=== PATIENT | female | born 1970 | race Caucasian/White ===

== ENCOUNTER 2018-08-01 23:50 | Inpatient (IN) | payer OTHER ==
[~2018-08-01] VITALS: Ht 165.1 cm; Wt 89.4 kg
[~2018-08-01 23:50] MED LIST: ALBU3IS; ALBU3IS INH; ALBU90OI INH; AMLO5 PO; Albuterol2.5 MG/0.5 INH; BLOOD PRESSURE; Cefpodoxime Pr100 MG PO; DULERA 100 MCG/13 GM INH; Flonase 0.05% N16 GM; GUAI600T33 PO; METPRE4DP PO; MONT10T PO; PRED20 PO; QVAR REDIHALE10.6 G1 IH; QVAR REDIHALE10.6 G1 INH
[2018-08-02 00:18] LABS: PCO2 Arterial 45.9 mmHg (35-45); PO2 Arterial 71.1 mmHg (80-100); pH Blood Arterial 7.33 (7.35-7.45)
[2018-08-02] MEDS ORDERED: BREO (00:34)
[2018-08-02 00:36] LABS: BASOPHILS ABSOLUTE AUTO 0.14 K/mm3 (0.00-0.23); BASOPHILS PERCENT AUTO 1 % (0-2); EOSINOPHILS ABSOLUTE AUTO 0.91 K/mm3 (0.00-0.68); EOSINOPHILS PERCENT AUTO 9 % (0-6); Hemoglobin 16.1 g/dL (11.5-16.0); IMMATURE GRAN ABSOLUTE AUTO 0.04 K/mm3 (0.00-0.10); IMMATURE GRAN PERCENT AUTO 0 % (0-1); LYMPHOCYTES ABSOLUTE AUTO 1.77 K/mm3 (0.84-5.20); LYMPHOCYTES PERCENT AUTO 17 % (21-46); MONOCYTES PERCENT AUTO 7 % (4-13); Mean Corpuscular HGB 32.9 pg (26.0-34.0); Mean Corpuscular HGB Conc 34.3 g/dL (31.5-36.5); Mean Corpuscular Volume 96 fL (80-100); Mean Platelet Volume 10.2 fL (9.1-12.4); NEUTROPHILS ABSOLUTE AUTO 6.93 K/mm3 (1.96-9.15); NEUTROPHILS PERCENT AUTO 66 % (41-73); Platelet Count 331 K/mm3 (150-400); RDW Coefficient Variation 12.4 % (11.7-14.2); White Blood Cell Count 10.49 K/mm3 (4.00-11.30)
--- NOTE | 2018-08-02 02:30 | NUR ---
ASSESSMENT: PT TRANSFERRED TO ICU 9 VIA GURNEY WITH HEART MONITOR ATTACHED AND RN AT BEDSIDE. PT DOING PURSED LIP BREATHING. LS VERY TIGHT T/O WITH EXP. WHEEZES T/O WITH BIOX 93% ON 3L N/C. RR 38. HEART SOUNDS S1 AND S2 AUSCULTATED WITH MONITOR SHOWING ST WITH HR 113. PT STATES HX OF WAP. 20G IV LH S/L. ABD R/S WITH BTX4. STATES HAVING 2/10 RIB PAIN FROM COUGHING SO MUCH. S.O. AT BEDSIDE.
--- NOTE | 2018-08-02 03:00 | NUR ---
AMBULATION: ASSISTED PT TO COMMODE TO VOID. BIOX DROPPED TO 87% WITH MOVEMENT, BUT CAME BACK UP TO 93% AFTER ABOUT 1 MINUTE OF PURSED LIP BREATHING.
[2018-08-02 03:06] LABS: Alanine Aminotransfer (ALT/SGP 61 U/L (12-78); Albumin, Blood 4.2 g/dL (3.4-5.0); Albumin/Globulin Ratio 1.1 (0.8-1.8); Alk Phos 78 U/L (50-136); Anion Gap 9 mmol/L (6-16); Aspartate Aminotrans (AST/SGOT 29 U/L (12-37); Bilirubin, Total 0.4 mg/dL (0.1-1.0); Blood Urea Nitrogen 13 mg/dL (8-24); Bun/Creatinine Ratio 19.2 (12.0-20.0); CO2, Blood 24 mmol/L (21-32); Chloride, Blood 108 mmol/L (98-108); Creatinine, Blood 0.68 mg/dL (0.40-1.00); Globulin, Blood 3.7 g/dL (2.2-4.0); Glomerular Filtration Rate >60 (60-); Glucose, Blood 132 mg/dL (70-99); Sodium, Blood 141 mmol/L (136-145); Total Protein, Blood 7.9 g/dL (6.4-8.2); Troponin I 0.129 ng/mL (0.000-0.040)
[2018-08-02] MEDS ORDERED: BREO ELLIPTA 21 EACH INH (03:57)
[2018-08-02] MEDS ORDERED: CYCL10 PO (04:12)
[2018-08-02] MEDS ORDERED: Allegra-D 24 H1 EACH PO (04:12)
[2018-08-02] MEDS ORDERED: ADVIL100 MG PO (04:13)
--- NOTE | 2018-08-02 06:23 | NUR ---
SHIFT SUMMARY: PT RESTING WELL, EASILY AROUSED. STATES THAT SHE IS FEELING BETTER. LS LESS TIGHT W/O WHEEZES. BIOX 96% ON 3L N/C.
--- NOTE | 2018-08-02 07:29 | NUR ---
START OF SHIFT NOTE: RECEIVED REPORT FROM SILKE CAPONE RN, ASSUMED CARE, PATIENT IS AWAKE AND ALERT AND ORIENTED, LUNG SOUNDS ARE TIGHT AND HAVE EXPIRATORY WHEEZES, PATIENT ON A BREATHING TREATMENT, HAS COUGHING SPELLS, BUT BRINGS UP ONLY SCANT AMOUNT OF YELLOWISH SPUTUM, SR/ST, BOWEL TONES HYPOACTIVE, PEDAL PULSES STRONG AND PALPABLE BILATERALLY, PATIENT ASSISTED UP TO BSC, CALL LIGHT IN REACH, WILL CONTINUE TO MONITOR.
--- NOTE | 2018-08-02 07:46 | NUR ---
PATIENT UP TO BSC WITH SBA, VOIDED AND HAD BM, RETURNED TO BED, PATIENT HAD COUGHING SPELL AGAIN, BUT O2 SATS HOLDING AT 93 %, POSITIONED FOR COMFORT, CALL LIGHT IN REACH, WILL CONTINUE TO MONITOR.
--- NOTE | 2018-08-02 10:42 | NUR ---
PATIENT CONTINUES TO HAVE COUGHING SPELLS WHEN UP TO BSC, MAINTAINS O2 SATS IN MID 90'S, OVERALL FEELS BETTER THOUGH, CALL LIGHT IN REACH, WILL CONTINUE TO MONITOR.
--- NOTE | 2018-08-02 11:57 | NUR ---
DR. TORRES IN TO SEE PATIENT, NEW ORDERS RECEIVED.
--- NOTE | 2018-08-02 13:05 | NUR ---
DR. DE LA ROSA NOTIFIED THAT HE IS CONSULTED FOR PULMONARY WITH THIS PATIENT, REFERRAL BY DR. TORRES.
--- NOTE | 2018-08-02 13:58 | NUR ---
ECHO DONE ORDERED BY CLINIC CLERK.
--- NOTE | 2018-08-02 14:04 | NUR ---
Echocardiogram completed.
--- NOTE | 2018-08-02 15:14 | NUR ---
HEAD AND NECK U/S DONE, DR. DE LA ROSA IN TO SEE PATIENT.
--- NOTE | 2018-08-02 17:18 | NUR ---
SHIFT SUMMARY NOTE: PATIENT IS DOING MUCH BETTER, BREATHING IMPROVED, UP TO BSC WITH SBA AND HAS NO MORE PROLONGED COUGHING SPELLS WHILE UP, LESS TIGHT AND LESS EXPIRATORY WHEEZING THROUGHOUT ALL LUNG SCHWARTZ, PATIENT ABLE TO BE UP WITH MINIMAL ASSISTANCE, STATED "I FEEL SO MUCH BETTER", SINUS TACHY WITH HR IN 90'S TO LOW 100'S WITH ACTIVITY, BOWEL TONES ARE PRESENT AND PATIENT HAD 2 SMALL BM'S DURING THIS SHIFT, ALSO URINATED GOOD AMOUNTS OF CLEAR YELLOW URINE, SCD'S IN PLACE, PATIENT IS ALSO ON CHEMICAL PROPHYLAXIS, LOVENOX, ON A CARDIAC/HEART HEALTHY DIET, EATING WITH GOOD APPETITE, DR. TORRES IN TO SEE PATIENT AND SHE PLACED CONSULT FOR PULMONARY TO SEE PATIENT, DR. DE LA ROSA IN AND NEW TESTS ORDERED, ECHO WAS DONE, EF 65-70 %, ALSO HEAD/NECK ULTRA SOUND WAS DONE, DR. DE LA ROSA ALSO ORDERED [facility] BLOOD TEST D/T ELEVATED EOSINOPHILS, PATIENT IS RESTING COMFORTABLY, USES CALL LIGHT APPROPRIATELY, REFUSED BED BATH D/T VISITORS AT BEDSIDE, FOR DETAILS SEE SHIFT ASSESSMENT DOCUMENTATION AND NURSES NOTES, CALL LIGHT IN REACH, WILL CONTINUE TO MONITOR AND GIVE REPORT TO ONCOMING ART FRAMING MANAGER.
--- NOTE | 2018-08-02 20:31 | NUR ---
ASSUMED CARE AT 1915. REPORT RECEIVED PARTIALLY AT BEDSIDE. PT PRESENTS IN BED. ALERT AND ORIENTED PLEASANT AND COOPERATIVE WITH CARE AND ASSESSMENT. PT ABLE TO MOVE ABOUT BED ON HER OWN. OXYGEN ON AT 2 L/M. PT DOES HAVE DRY HACKY TYPE COUGH WITH EXERTION. TEACHING ON DISEASE PROCESS DONE WITH PT. WILL REVIEW CHART AND PLAN OF CARE FOR THIS PT.
--- NOTE | 2018-08-03 00:13 | NUR ---
PT HAS BEEN UP TO BEDSIDE COMMODE SEVERAL TIMES THIS EVENING. DOES HAVE EXERTIONAL DYSPNEA WHICH SHE STATES IS MUCH BETTER THAN EARLIER IN DAY. PT HAS EVEN REQUESTED TO TAKE A BREAK FROM HER NASAL CANNULA. TEACHING DONE ON ITS NECESSITY, WHICH PT VOICED UNDERSTANDING. PT CURRENTLY ON 2 LITERS PER NASAL CANNULA. HAS COMPLAINED OF HER NARES BEING DRIED SECONDARY TO O2. DID PROVIDE PT WITH WATER SOLUABLE LUBRICANT FOR NARES WHICH SHE STATES HAS HELP A LOT. WILL CONTINUE TO MONITOR PT.
--- NOTE | 2018-08-03 03:05 | NUR ---
PT CONTINUES ON 2 L/M O2. OCCASSIONALLY HAS DRY HACKY COUGH. VOICES NO COMPLAINTS. IS ABLE TO MOVE ABOUT IN BED INDEPENDENTLY. WILL CONTINUE TO MONITOR PT.
[2018-08-03 03:40] LABS: Anion Gap 9 mmol/L (6-16); Blood Urea Nitrogen 15 mg/dL (8-24); Bun/Creatinine Ratio 21.8 (12.0-20.0); CO2, Blood 25 mmol/L (21-32); Calcium, Blood 9.2 mg/dL (8.5-10.1); Chloride, Blood 108 mmol/L (98-108); Creatinine, Blood 0.69 mg/dL (0.40-1.00); Glomerular Filtration Rate >60 (60-); Glucose, Blood 154 mg/dL (70-99); Phosphorus, Blood 3.7 mg/dL (2.5-4.9); Potassium, Blood 4.2 mmol/L (3.5-5.5); Sodium, Blood 142 mmol/L (136-145)
--- NOTE | 2018-08-03 06:58 | NUR ---
PT STATES THAT SHE HAS HAD A MUCH BETTER NIGHT. HAS NOT HAD AGGRESSIVE COUGH SHE DID BEFORE. CONTINUES ON 2 L/M OXYGEN PER NASAL CANNULA. MAINTAINS OXYGEN SATURATIONS > 90 PERCENT. DENIES COMPLAINTS OF PAIN. IS ABLE TO GET UP TO COMMODE WITH MINIMAL ASSIST. VOIDS Q.S. WILL CONTINUE TO MONITOR PT, AND WILL REPORT OFF TO GENEVIEVE YOST.
--- NOTE | 2018-08-03 10:40 | NUR ---
PT A/O. O2 2L WITH GOOD SATS BUT LUNGS QUITE TIGHT AND DIM. WITH WHEEZING SCATTERED T.O. UP TO VOID. PO INTAKE GOOD. PT QUITE AWARE OF LIMITATIONS. VS NOTED.
--- NOTE | 2018-08-03 17:25 | NUR ---
PT HAS BEEN SOMEWHAT INDEPENDENT IN ROOM EXCEPT FOR LINES. HAS CONT TO HAVE OCC COUGHING EPISODES AND PRODUCING SMALL AMOUNTS SPUTUM YELLOW IN COLOR. PT UP TO COMMODE TO VOID. HAS BEEN VISITING WITH FRIEND CAITLIN WHO HAS BEEN IN AND OUT TO VISIT. PT HAS A NEW ROOM ASSIGNED AND WILL SENT TO 337 AFTER GIVING REPORT AND WILL ARRANGE KATHY.
--- NOTE | 2018-08-03 17:50 | NUR ---
TRANSFER REPORT CALLED TO ZOE Romano RN AND WILL TRANSFER TO [facility] VIA W/C PER [facility] PCT.
--- NOTE | 2018-08-03 18:00 | NUR ---
PT. ARRIVED TO ROOM FROM ICU VIA WC. A&O DENIES PAIN BUT HAVEING SOB WITH PURSED LIP BREATHING. SETTLED PT. IN BED AND GOT O2 TUBING AND PUT ON PT. AT 1 1/2 L/NC. PT. PLEASANT AND COOPERATIVE LS TIGHT AND DIMINISHED T/O.
--- NOTE | 2018-08-04 05:04 | NUR ---
Shift Summary Pt has not slept too well during the night. Has been up in room per self to the bathroom. Continues with oxygen at 1.5l/nc. Has had dry harsh sounding cough at times during the night. No acute events noted during the night, will continue to monitor.
[2018-08-04 05:49] LABS: Albumin, Blood 3.8 g/dL (3.4-5.0); Anion Gap 6 mmol/L (6-16); Blood Urea Nitrogen 20 mg/dL (8-24); Bun/Creatinine Ratio 26.7 (12.0-20.0); CO2, Blood 27 mmol/L (21-32); Calcium, Blood 9.2 mg/dL (8.5-10.1); Chloride, Blood 109 mmol/L (98-108); Creatinine, Blood 0.75 mg/dL (0.40-1.00); Glomerular Filtration Rate >60 (60-); Glucose, Blood 151 mg/dL (70-99); Phosphorus, Blood 3.2 mg/dL (2.5-4.9); Potassium, Blood 4.4 mmol/L (3.5-5.5); Sodium, Blood 142 mmol/L (136-145)
--- NOTE | 2018-08-04 16:17 | NUR ---
PT IS ALERT AND ORIENTED AND COOPERATIVE WITH CARE. HER SPOUSE IS AT THE BEDSIDE NOW. THE PATIENT BECOMES SOB WITH EXERTION. SHE HAS OXYGEN AT THE BEDSIDE AT 2L TO USE PRN. THE PT IS ON ROOM AIR AT REST. SHE USES THE BATHROOM AND AMBULATES ON HER OWN TO GET THERE. SHE HAS BEE SEEING RT FOR BREATHING TREATMENTS. NO COMPLAINTS OF PAIN. SHE IS ON A REGULAR DIET WITH A GOOD APPETITE. VITAL SIGNS ARE STABLE. WILL CONTINUE TO MONITOR. PT CALLS APPROPRIATELY.
--- NOTE | 2018-08-05 04:33 | NUR ---
SHIFT SUMMARY A/O, ABLE TO MAKE NEEDS KNOWN. COOPERATIVE WITH CARE. CALLS AND ANSWERS QUESTIONS APPROPRIATELY. NO C/O PAIN/DISCOMFORT. APPEARED TO REST MUCH OF SHIFT. NO ACUTE CHANGES OVERNIGHT. VSS/AFEBRILE. WCTM. BED IN LOWEST POSITION. CALL LIGHT AND BELONGINGS WITHIN REACH. REPORT TO ONCOMING RN.
[2018-08-05] MEDS ORDERED: Albuterol2.5 MG/0.5 INH (14:31)
[2018-08-05] MEDS ORDERED: Prednisone20 MG PO (14:37)
[2018-08-05] MEDS ORDERED: PANT40 PO (14:38)
[2018-08-05] MEDS ORDERED: INCRUSE ELLI62.5 MCG INH (14:38)
--- NOTE | 2018-08-05 16:40 | NUR ---
PATIENT D/C'D HOME W/SPOUSE AT THIS TIME. PATIENT STATES UNDERSTANDING OF MEDS, F/U APPTS, OP TESTS, ETC. NO C/O AT THIS TIME.
== END 2018-08-05 16:40 | disposition home or self-care (01) | DRG 189 ==
LOC: ER 23:50 → ICUW 08-02 02:05 → MEDS 08-03 18:18 → ENPENDDIS 08-05 15:02 → MEDS 08-05 16:40
PROVIDERS: Emergency Medicine; Internal Medicine; Internal Medicine Critical Care Medicine; ADMIT Hospitalist
DX: J96.01 Acute respiratory failure with hypoxia (principal); I21.A1 Myocardial infarction type 2; J45.41 Moderate persistent asthma with (acute) exacerbation; D72.1 Eosinophilia; K21.9 Gastro-esophageal reflux disease without esophagitis; E04.1 Nontoxic single thyroid nodule; R91.8 Other nonspecific abnormal finding of lung field; I10 Essential (primary) hypertension; E66.9 Obesity, unspecified; R13.10 Dysphagia, unspecified; Z87.891 Personal history of nicotine dependence; Z68.33 Body mass index [BMI] 33.0-33.9, adult
CPT/HCPCS: 36415; 36600; 71045; 76536; 80053; 80069; 82803; 84484; 85025; 93005; 93010; 93306; 94640; 94644; 94760; 96365; 96375; 99285-25; J1650; J2060; J2930; J3475

== ENCOUNTER 2018-10-31 13:23 | Day surgery (SDC) | payer OTHER ==
[~2018-10-31] VITALS: Ht 165.1 cm; Wt 93.8 kg
[~2018-10-31 13:23] MED LIST changes: +ADVIL100 MG PO; +Allegra-D 24 H1 EACH PO; +BREO; +BREO ELLIPTA 11 EACH INH; +BREO ELLIPTA 21 EACH INH; +CYCL10 PO; +IBUP800 PO; +INCRUSE ELLI62.5 MCG INH; +PANT40 PO; +Prednisone20 MG PO
--- NOTE | 2018-10-31 14:42 | NUR ---
History, Chart, Medications and Allergies reviewed before start of procedure. Patient confirms NPO status and agrees with scheduled surgery. Patient States Post-Procedure ride home has been arranged. Lungs clear T/O to Auscultation. Pre-Op teaching done. Pt verbalizes understanding.
--- NOTE | 2018-10-31 16:43 | NUR ---
10/31/18 1643 Marc Benites 3-LEAD EKG REVIEWED WITH PHYSICIAN PRIOR TO START OF PROCEDURE.PATIENT CONFIRMS NPO STATUS AND AGREES WITH SCHEDULED PROCEDURE.History, Chart, Medications and Allergies reviewed before start of procedure. History, Chart, Medications and Allergies reviewed before start of procedure.MONITOR INTACT WITH CONTINUOUS PULSE OXIMETRY AND INTERMITTENT BP.O2 VIA N/C INTACT THROUGHOUT SEDATION/PROCEDURE. Bite Block Placed
--- NOTE | 2018-10-31 17:47 | NUR ---
Patient up to Ambulate independently. Gait steady. Discharge instructions reviewed with patient. Patient verbalizes understanding. Copy given to patient to take home. Patient States Post-Procedure ride home has been arranged. Discharged via wheelchair to private car for ride home.
== END 2018-10-31 22:55 | disposition home or self-care (01) ==
LOC: ORSCMMR 13:23 → ORD 15:30 → ORSCMMR 15:30
PROVIDERS: Student in an Organized Health Care Education/Training Program
PROC: 0DB58ZX Excision of Esophagus, Via Natural or Artificial Opening Endoscopic, Diagnostic (ICD-10-PCS; principal; 2018-10-31 15:30)
PROC: 0DB68ZX Excision of Stomach, Via Natural or Artificial Opening Endoscopic, Diagnostic (ICD-10-PCS; principal; 2018-10-31 15:30)
DX: R05 Cough (principal); K21.9 Gastro-esophageal reflux disease without esophagitis; K29.70 Gastritis, unspecified, without bleeding; K44.9 Diaphragmatic hernia without obstruction or gangrene; J38.3 Other diseases of vocal cords; I10 Essential (primary) hypertension; J45.909 Unspecified asthma, uncomplicated; Z87.891 Personal history of nicotine dependence; Z79.899 Other long term (current) drug therapy
CPT/HCPCS: 88305; 88342; J2704; J7120

== ENCOUNTER 2020-01-03 19:55 | Inpatient (IN) | payer OTHER ==
[~2020-01-03] VITALS: Ht 165.1 cm; Wt 90.5 kg
[~2020-01-03 19:55] MED LIST changes: +BREO ELLIPTA 21 EAC1 INH; -BREO ELLIPTA 21 EACH INH
[2020-01-03 20:13] LABS: PCO2 Arterial 45.3 mmHg (35-45); PO2 Arterial 63.4 mmHg (80-100); pH Blood Arterial 7.32 (7.35-7.45)
[2020-01-03 20:19] LABS: BASOPHILS ABSOLUTE AUTO 0.19 K/mm3 (0.00-0.23); BASOPHILS PERCENT AUTO 1 % (0-2); EOSINOPHILS ABSOLUTE AUTO 0.86 K/mm3 (0.00-0.68); EOSINOPHILS PERCENT AUTO 6 % (0-6); Hematocrit 46.6 % (33.0-51.0); Hemoglobin 16.1 g/dL (11.5-16.0); IMMATURE GRAN ABSOLUTE AUTO 0.05 K/mm3 (0.00-0.10); IMMATURE GRAN PERCENT AUTO 0 % (0-1); LYMPHOCYTES ABSOLUTE AUTO 3.89 K/mm3 (0.84-5.20); LYMPHOCYTES PERCENT AUTO 25 % (21-46); MONOCYTES ABSOLUTE AUTO 1.32 K/mm3 (0.16-1.47); MONOCYTES PERCENT AUTO 9 % (4-13); Mean Corpuscular HGB 33.1 pg (26.0-34.0); Mean Corpuscular HGB Conc 34.5 g/dL (31.5-36.5); Mean Corpuscular Volume 96 fL (80-100); Mean Platelet Volume 10.1 fL (9.1-12.4); NEUTROPHILS ABSOLUTE AUTO 8.99 K/mm3 (1.96-9.15); NEUTROPHILS PERCENT AUTO 59 % (41-73); Platelet Count 286 K/mm3 (150-400); RDW Coefficient Variation 11.5 % (11.7-14.2); RDW Standard Deviation 40.5 fL (35.1-46.3); Red Blood Cell Count 4.87 M/mm3 (3.80-5.20)
[2020-01-03 20:39] LABS: Alanine Aminotransfer (ALT/SGP 40 U/L (12-78); Albumin, Blood 4.4 g/dL (3.4-5.0); Albumin/Globulin Ratio 1.2 (0.8-1.8); Alk Phos 79 U/L (50-136); Anion Gap 9 mmol/L (6-16); Aspartate Aminotrans (AST/SGOT 26 U/L (12-37); Bilirubin, Total 0.4 mg/dL (0.1-1.0); Blood Urea Nitrogen 13 mg/dL (8-24); Bun/Creatinine Ratio 18.6 (12.0-20.0); CO2, Blood 26 mmol/L (21-32); Calcium, Blood 9.7 mg/dL (8.5-10.1); Chloride, Blood 106 mmol/L (98-108); Globulin, Blood 3.7 g/dL (2.2-4.0); Glomerular Filtration Rate >60 (60-); Glucose, Blood 125 mg/dL (70-99); Potassium, Blood 3.8 mmol/L (3.5-5.5); Sodium, Blood 141 mmol/L (136-145); Total Protein, Blood 8.1 g/dL (6.4-8.2)
[2020-01-03] MEDS ORDERED: UMECLIDINIUM INH (21:38)
[2020-01-03] MEDS ORDERED: ipratropium bromide INH (21:43)
[2020-01-03] MEDS ORDERED: CYCL10 PO ×2 (22:50→22:51)
[2020-01-04 05:42] LABS: Anion Gap 8 mmol/L (6-16); Blood Urea Nitrogen 13 mg/dL (8-24); Bun/Creatinine Ratio 21.6 (12.0-20.0); CO2, Blood 25 mmol/L (21-32); Calcium, Blood 9.5 mg/dL (8.5-10.1); Chloride, Blood 103 mmol/L (98-108); Glomerular Filtration Rate >60 (60-); Glucose, Blood 226 mg/dL (70-99); Potassium, Blood 3.7 mmol/L (3.5-5.5); Sodium, Blood 136 mmol/L (136-145)
--- NOTE | 2020-01-04 08:00 | NUR ---
PT LAYING IN BED WATCHING TV, A/OX3, PLEASANT AND COOPERATIVE WITH CARE, FOLLOWS COMMANDS WELL, DENIES PAIN, LUNGS HAVE EXP WHEEZING T/O, RESP EVEN AND UNLABORED AT REST, HAS A PRODUCTIVE COUGH OF WHITE SPUTUM, IS ASKING FOR SOMETHING TO HELP HER COUGH IT UP NOT SUPRESS IT, IS ON 2 LITERS 02 VIA N/C, HRR, TELE IN PLACE RUNNING ST PER MONITOR, SEE STRIP, NO EDEMA NOTED, PPP+2, CAP REFILL <3SEC, VS STABLE, AFEBRILE, IV SITE IS CLEAR AND PATENT, BTX4, ABD FLAT SOFT NONTENDER, VOIDS WITHOUT DIFF, SKIN C/W/D, MAEW, RAJAN, CALL LIGHT IN REACH.
[2020-01-04 13:14] LABS: BASOPHILS ABSOLUTE AUTO 0.03 K/mm3 (0.00-0.23); BASOPHILS PERCENT AUTO 1 % (0-2); EOSINOPHILS ABSOLUTE AUTO 0.01 K/mm3 (0.00-0.68); EOSINOPHILS PERCENT AUTO 0 % (0-6); Hemoglobin 14.5 g/dL (11.5-16.0); IMMATURE GRAN ABSOLUTE AUTO 0.02 K/mm3 (0.00-0.10); IMMATURE GRAN PERCENT AUTO 0 % (0-1); LYMPHOCYTES ABSOLUTE AUTO 0.47 K/mm3 (0.84-5.20); LYMPHOCYTES PERCENT AUTO 8 % (21-46); MONOCYTES ABSOLUTE AUTO 0.07 K/mm3 (0.16-1.47); MONOCYTES PERCENT AUTO 1 % (4-13); Mean Corpuscular HGB 32.7 pg (26.0-34.0); Mean Corpuscular HGB Conc 34.5 g/dL (31.5-36.5); Mean Corpuscular Volume 95 fL (80-100); Mean Platelet Volume 10.6 fL (9.1-12.4); NEUTROPHILS ABSOLUTE AUTO 5.41 K/mm3 (1.96-9.15); NEUTROPHILS PERCENT AUTO 90 % (41-73); Platelet Count 246 K/mm3 (150-400); RDW Coefficient Variation 11.3 % (11.7-14.2); RDW Standard Deviation 39.5 fL (35.1-46.3); Red Blood Cell Count 4.44 M/mm3 (3.80-5.20); White Blood Cell Count 6.01 K/mm3 (4.00-11.30)
--- NOTE | 2020-01-04 13:46 | NUR ---
pt is being bothered by allergies, asked for flonase, this was obtained for her, states her ribs hurt from coughing, no further changes. call light in reach.
--- NOTE | 2020-01-04 18:07 | NUR ---
pt is doing well, she got up to the br without o2 on and maintained her sats. states she's feeling better, call light in reach.
--- NOTE | 2020-01-05 06:05 | NUR ---
SHIFT SUMMARY PT RESTING IN ROOM COMFORTABLY AT THIS TIME. NO ACUTE CHANGES IN STATUS T/O NIGHT. T SLEPT WELL DENIED NEEDS. PT DENIED SOB T/O MOST OF THE NIGHT. DID WAKE UP AROUND 0300 COUGHING AND WHEEZING AND ASKED FOR BREATHING TREATMENT. SATS >92% ON 2L NC. DENIED CP AND OTHER NEEDS. CALL LIGHT IN REACH.
[2020-01-05] MEDS ORDERED: Tessalon200 MG PO (11:55)
[2020-01-05] MEDS ORDERED: PRED20 PO (11:57)
--- NOTE | 2020-01-05 14:15 | NUR ---
DISCHARGED WITH CLEAR UNDERSTANDING OF INSTRUCITONS.
== END 2020-01-05 14:04 | disposition home or self-care (01) | DRG 189 ==
LOC: ER 19:55 → PCU 19:56 → ER 19:56 → PCU 19:56
PROVIDERS: Emergency Medicine; Nurse Practitioner Acute Care; ADMIT Internal Medicine
DX: J96.01 Acute respiratory failure with hypoxia (principal); J45.52 Severe persistent asthma with status asthmaticus; F41.8 Other specified anxiety disorders; I10 Essential (primary) hypertension; E66.9 Obesity, unspecified; Z68.33 Body mass index [BMI] 33.0-33.9, adult; Z20.828 Contact with and (suspected) exposure to other viral communicable diseases; Z87.891 Personal history of nicotine dependence
CPT/HCPCS: 36415; 36600; 71045; 80048; 80053; 82803; 84145; 85025; 90670; 94640; 94644; 94760; 94762; 99285-25; J1650; J2930; J3475; Q2038; U0003

== ENCOUNTER 2021-04-13 09:39 | Emergency (ER) | payer OTHER ==
[~2021-04-13] VITALS: Ht 165.1 cm; Wt 95.2 kg
[~2021-04-13 09:39] MED LIST changes: +Tessalon200 MG PO; +UMECLIDINIUM INH; +ipratropium bromide INH
[2021-04-13] MEDS ORDERED: IBU800 MG PO (10:51)
[2021-04-13] MEDS ORDERED: HYDROCODONE-AC1 EA10 PO (10:51)
[2021-04-13] MEDS ORDERED: Prednisone20 MG PO (10:51)
[2021-04-13] MEDS ORDERED: CYCL10 PO (10:51)
== END 2021-04-13 11:03 | disposition home or self-care (01) ==
LOC: ER 09:39
DX: M54.40 Lumbago with sciatica, unspecified side (principal); Z88.5 Allergy status to narcotic agent; Z88.2 Allergy status to sulfonamides; Z88.6 Allergy status to analgesic agent; Z87.891 Personal history of nicotine dependence
CPT/HCPCS: 96372; 99283; A9270; J1885

== ENCOUNTER 2021-05-18 20:27 | Emergency (ER) | payer OTHER ==
[~2021-05-18] VITALS: Ht 165.1 cm; Wt 92.5 kg
[~2021-05-18 20:27] MED LIST changes: +HYDROCODONE-AC1 EA10 PO; +IBU800 MG PO
[2021-05-19] MEDS ORDERED: SYMBICORT 160-4.6 GM INH (07:47)
[2021-05-19] MEDS ORDERED: MELO7.5 PO (07:47)
[2021-05-19] MEDS ORDERED: TIOT18 INH (07:48)
[2021-05-19] MEDS ORDERED: MONT10T PO (07:49)
[2021-05-19] MEDS ORDERED: Prednisone50 MG PO (09:02)
== END 2021-05-18 21:40 | disposition left against medical advice (07) ==
LOC: ER 20:27
DX: Z53.21 Procedure and treatment not carried out due to patient leaving prior to being seen by health care provider (principal)

== ENCOUNTER 2022-12-20 10:01 | Emergency (ER) | payer OTHER ==
[~2022-12-20] VITALS: Ht 165.1 cm; Wt 95.2 kg
[~2022-12-20 10:01] MED LIST changes: +Deltasone 10 mg10 MG PO; +MELO7.5 PO; +Prednisone50 MG PO; +SYMBICORT 160-4.6 GM INH; +TIOT18 INH
[2022-12-20 12:10] VITALS: BP 171/87
[2022-12-20] MEDS ORDERED: Prednisone50 MG PO (12:28)
== END 2022-12-20 13:27 | disposition home or self-care (01) ==
LOC: ER 10:01
DX: J45.901 Unspecified asthma with (acute) exacerbation (principal); Z88.5 Allergy status to narcotic agent; Z88.2 Allergy status to sulfonamides; Z79.899 Other long term (current) drug therapy
CPT/HCPCS: 94640; 94644; 94664; 99283-25; J7512

== ENCOUNTER → 2023-01-22 | Outpatient (CLI) | payer OTHER ==
[2023-01-22 19:56] LABS: BASOPHILS ABSOLUTE AUTO 0.07 K/mm3 (0.00-0.23); BASOPHILS PERCENT AUTO 1 % (0-2); EOSINOPHILS ABSOLUTE AUTO 0.24 K/mm3 (0.00-0.68); EOSINOPHILS PERCENT AUTO 4 % (0-6); Hematocrit 43.2 % (33.0-51.0); Hemoglobin 14.9 g/dL (11.5-16.0); IMMATURE GRAN ABSOLUTE AUTO 0.04 K/mm3 (0.00-0.10); IMMATURE GRAN PERCENT AUTO 1 % (0-1); LYMPHOCYTES ABSOLUTE AUTO 2.05 K/mm3 (0.84-5.20); LYMPHOCYTES PERCENT AUTO 36 % (21-46); MONOCYTES ABSOLUTE AUTO 0.65 K/mm3 (0.16-1.47); MONOCYTES PERCENT AUTO 11 % (4-13); Mean Corpuscular HGB 32.9 pg (26.0-34.0); Mean Corpuscular HGB Conc 34.5 g/dL (31.5-36.5); Mean Corpuscular Volume 95 fL (80-100); Mean Platelet Volume 10.5 fL (9.1-12.4); NEUTROPHILS ABSOLUTE AUTO 2.63 K/mm3 (1.96-9.15); NEUTROPHILS PERCENT AUTO 46 % (41-73); Platelet Count 301 K/mm3 (150-400); RDW Coefficient Variation 11.8 % (11.7-14.2); Red Blood Cell Count 4.53 M/mm3 (3.80-5.20); White Blood Cell Count 5.68 K/mm3 (4.00-11.30)
[2023-01-22 20:18] LABS: Very Low Density Lipoprot Chol 15 mg/dL (6-32)
[2023-01-22 20:33] LABS: Alanine Aminotransfer (ALT/SGP 37 U/L (12-78); Albumin, Blood 4.2 g/dL (3.4-5.0); Albumin/Globulin Ratio 1.2 (0.8-1.8); Alk Phos 59 U/L (50-136); Anion Gap 8 mmol/L (6-16); Aspartate Aminotrans (AST/SGOT 28 U/L (12-37); Bilirubin, Total 0.3 mg/dL (0.1-1.0); Blood Urea Nitrogen 18 mg/dL (8-24); Bun/Creatinine Ratio 20.5 (12.0-20.0); CHOL/HDL RATIO 2.8; CO2, Blood 25 mmol/L (21-32); Calcium, Blood 9.2 mg/dL (8.5-10.1); Chloride, Blood 106 mmol/L (98-108); Cholesterol 340 mg/dL (50-200); Creatinine, Blood 0.88 mg/dL (0.40-1.00); Globulin, Blood 3.5 g/dL (2.2-4.0); Glomerular Filtration Rate 79 (60-); Glucose, Blood 86 mg/dL (70-99); HDL Cholesterol 123 mg/dL (>39); LDL/HDL RATIO 1.6; Low Density Lipoprotein Chol 202 mg/dL (0-110); Potassium, Blood 3.5 mmol/L (3.5-5.5); Sodium, Blood 139 mmol/L (136-145); Total Protein, Blood 7.7 g/dL (6.4-8.2); Triglycerides 76 mg/dL (30-160)
[2023-01-25 08:08] LABS: HIV AB/P24 AG SCREEN Non Reactive (Non Reactive)
== END | disposition home or self-care (01) ==
LOC: LAB 19:18 → LAB SHORT 19:18
PROVIDERS: Student in an Organized Health Care Education/Training Program
DX: Z00.00 Encounter for general adult medical examination without abnormal findings (principal); Z13.6 Encounter for screening for cardiovascular disorders
CPT/HCPCS: 80053; 80061; 85025; 87389